=== PATIENT | male | born 1965 | race Hispanic/Latino ===

== ENCOUNTER 2021-10-01 09:37 | Outpatient (RCR) | payer OTHER ==
[~2021-10-01 09:37] MED LIST: LIDOCAINE VISC 2% SOLN 15 ML UDC ONE; MUPIROCIN 2% OINT 22 GM TUBE ONE
== END 2021-10-04 ==
LOC: WCC 09:37
PROVIDERS: ATTEND Family Medicine Adult Medicine
DX: I10 Essential (primary) hypertension (principal); T22.211A Burn of second degree of right forearm, initial encounter; X14.1XXA Other contact with hot air and other hot gases, initial encounter

== ENCOUNTER 2021-10-08 11:12 | Outpatient (RCR) | payer OTHER | END 2021-11-04 | LOC: WCC 11:12 | PROVIDERS: ATTEND Family Medicine Adult Medicine | DX: T22.211A Burn of second degree of right forearm, initial encounter (principal); I10 Essential (primary) hypertension; X14.1XXA Other contact with hot air and other hot gases, initial encounter ==